=== PATIENT | male | born 1965 | race African-American/Black ===

== ENCOUNTER 2017-09-24 00:34 | Emergency (ER) | payer MEDICAID ==
[~2017-09-24] VITALS: Ht 157.5 cm; Wt 95.0 kg
[~2017-09-24 00:34] MED LIST: ASPI-1159 PO; ATOR80TA PO; DIPH25CA83 PO; FAMO40TA70 PO; FLUT16SP15 BOTHNSTRLS; FURO40TA5 PO; ISOS30TA6 PO; LOPRE; METO25TA6 PO; OMEP20CA10 PO; P20 PO
[2017-09-24] MEDS ORDERED: METHYLPREDNISOLONE SOD SUCC 125 MG/2 ML VIAL IV ONE (01:45)
[2017-09-24] MEDS ORDERED: SODIUM CHLORIDE 0.9% 1,000 ML IV ONE (01:45)
[2017-09-24] MEDS ORDERED: DIPHENHYDRAMINE 50MG/ML VIAL IV ONE (01:45)
[2017-09-24] MEDS ORDERED: FAMOTIDINE 20MG/2ML VIAL IV ONE (01:45)
[2017-09-24] MEDS ORDERED: HYDRALAZINE HCL 50MG TABLET PO ONE (02:45)
[2017-09-24 04:30] VITALS: BP 180/120
[2017-09-28 13:11] LABS: C1 ESTERASE INHIBITOR FUNCTNL 77 (.)
[2017-09-30 14:22] LABS: C1 ESTERASE INHIBITOR 10 mg/dL (21-39)
== END 2017-09-24 04:30 | disposition home or self-care (01) ==
LOC: ER 00:45
DX: T78.40XA Allergy, unspecified, initial encounter (principal); I11.0 Hypertensive heart disease with heart failure; I50.9 Heart failure, unspecified; M10.9 Gout, unspecified; R13.10 Dysphagia, unspecified; Z79.82 Long term (current) use of aspirin; Z79.899 Other long term (current) drug therapy; Z88.8 Allergy status to other drugs, medicaments and biological substances
CPT/HCPCS: 86161; 96361; 96374; 96375; 99284; J1200; J2930; J3490; J7030; Z7610

== ENCOUNTER 2019-11-25 17:58 | Emergency (ER) | payer MEDICAID ==
[~2019-11-25] VITALS: Ht 177.8 cm; Wt 100.0 kg
[~2019-11-25 17:58] MED LIST changes: -ASPI-1159 PO; +ASPI-1497 PO; -OMEP20CA10 PO; +OMEP20CA14 PO
[2019-11-25] MEDS ORDERED: TETANUS, DIPHTHERIA, PERTUSSIS VAC/PF 0.5ML (>7YR OLD) IM ONE (18:45)
[2019-11-25] MEDS ORDERED: BACITRACIN ZINC OINT UDPKT TOP ONE (18:45)
[2019-11-25 21:58] VITALS: BP 121/72
== END 2019-11-25 22:05 | disposition home or self-care (01) ==
LOC: ER 17:58
DX: R51 Headache (principal); F10.129 Alcohol abuse with intoxication, unspecified; Y90.0 Blood alcohol level of less than 20 mg/100 ml; I11.0 Hypertensive heart disease with heart failure; I50.9 Heart failure, unspecified; F17.290 Nicotine dependence, other tobacco product, uncomplicated; Z79.82 Long term (current) use of aspirin; Z79.899 Other long term (current) drug therapy
CPT/HCPCS: 71045; 72170; 90471; 90715; 99285

== ENCOUNTER 2022-12-19 21:45 | Emergency (ER) | payer MEDICAID ==
[~2022-12-19] VITALS: Ht 172.7 cm; Wt 81.0 kg
[~2022-12-19 21:45] MED LIST changes: -ISOS30TA6 PO; +ISOS30TA91 PO
[2022-12-20 01:30] VITALS: BP 158/81
== END 2022-12-20 01:38 | disposition home or self-care (01) ==
LOC: ER 21:45
DX: F10.129 Alcohol abuse with intoxication, unspecified (principal); Y90.0 Blood alcohol level of less than 20 mg/100 ml; I11.0 Hypertensive heart disease with heart failure; I50.9 Heart failure, unspecified; Z79.899 Other long term (current) drug therapy
CPT/HCPCS: 99283; Z7610

== ENCOUNTER 2023-03-30 01:08 | Emergency (ER) | payer MEDICARE, MEDICAID ==
[~2023-03-30] VITALS: Ht 175.3 cm; Wt 95.0 kg
[2023-03-30 01:29] VITALS: TEMP 98; O2SAT 96
[2023-03-30] MEDS ORDERED: BACITRACIN ZINC OINT UDPKT TOP ONE (05:30)
[2023-03-30] MEDS ORDERED: HYDROCODONE/ACETAMINOPHEN 5/325MG TABLET PO ONE (05:30)
[2023-03-30] MEDS ORDERED: LIDOCAINE HCL 1% 20ML VIAL (Pyxis) INJ INFIL ONE (05:30)
[2023-03-30 05:48] VITALS: BP 165/106; PULSE 110; RESP 16
[2023-03-30 07:04] LABS: BASOPHILS % 0.3 % (0.0-2.0); EOSINOPHILS % 0.6 % (0.0-5.0); HEMATOCRIT. 31.3 % (42.0-52.0); HEMOGLOBIN. 10.9 g/dL (14.0-18.0); LYMPHOCYTES % 14.4 % (20.0-50.0); MEAN CORPUSCULAR HGB CONC 34.9 g/dL (31.0-37.0); MEAN CORPUSCULAR VOLUME 111.5 fL (80.0-94.0); MEAN PLATELET VOLUME 7.4 fl (7.4-10.4); MONOCYTES % 8.5 % (2.0-8.0); NEUTROPHILS % 76.2 % (40.0-76.0); PLATELET 429 x1000/uL (130-400); RED BLOOD CELL COUNT 2.81 mill/uL (4.7-6.1); RED CELL DISTRIBUTION WIDTH 14.7 % (11.6-14.6); WHITE BLOOD COUNT 9.8 x1000/uL (4.5-11.0)
[2023-03-30 07:07] LABS: ADD RBC MORPHOLOGY YES; DIFFERENTIAL COMMENT 1
[2023-03-30 07:12] LABS: CHLORIDE 96 mEq/L (98-107); INDEX HEMOLYSI 1 (1-3); INDEX ICTERIC 1 (1-4); INDEX LIPEMIC 1 (1-3); POTASSIUM 3.5 mEq/L (3.5-5.1); SODIUM 135 mEq/L (136-145)
[2023-03-30 07:20] LABS: ALANINE AMINOTRANSFERASE 14 IU/L (13-61); ASPARTATE AMINOTRANSFERASE 18 IU/L (15-37); BILIRUBIN TOTAL 0.9 mg/dL (0.1-1.0); CALCIUM 9.6 mg/dL (8.5-10.1); CARBON DIOXIDE 26 mEq/L (21-32); CREATININE 1.2 mg/dL (0.6-1.3); GLUCOSE 99 mg/dL (70-105); PROTEIN TOTAL 8.7 g/dL (6.0-8.3); UREA NITROGEN BLOOD 25 mg/dL (7-21)
[2023-03-30] MEDS ORDERED: AMOX1TAB16 MT ×2 (08:05→08:07)
[2023-03-30] MEDS ORDERED: T3 PO ×2 (08:05→08:07)
[2023-03-30 08:38] LABS: PLATELET ESTIMATE SLIGHTLY INCREASED
== END 2023-03-30 08:39 | disposition home or self-care (01) ==
LOC: ER 01:08
DX: L02.415 Cutaneous abscess of right lower limb (principal); I11.0 Hypertensive heart disease with heart failure; I50.9 Heart failure, unspecified; Z88.8 Allergy status to other drugs, medicaments and biological substances
CPT/HCPCS: 99284; 10060; 80053; 83605; 85025; 87040; 36415; 73660; J3490